=== PATIENT | female | born 1975 | race Two or more races ===

== ENCOUNTER 2021-06-13 20:24 | Emergency (ER) | payer SELFPAY ==
[~2021-06-13] VITALS: Ht 160 cm; Wt 61.5 kg
--- NOTE | 2021-06-13 20:56 | NUR ---
PT PRESENTS TO ER FOR: 22 DAYS AGO GOT PAP SMEAR FOR BLEEDING AND CRAMPING AND WAS TOLD TO COME TO ER IF THE BLEEDING GETS WORSE, PT EXPERIENCING HEAVY BLEEDING, LOWER ABDOMINAL PAIN, PT HAS 3-4 FULLY SATURATED PADS AN HOUR, PT STATES WHEN SHE URINATES SHE PASSES A LOT OF CLOTS, PTS DAUGHTER AT BEDSIDE
[2021-06-13] MEDS ORDERED: SODIUM CHLORIDE FLUSH 10ML SYR IVF ONE (21:00)
[2021-06-13 21:03] LABS: BASOPHILS % (AUTO) 1 % (0-1); EOSINOPHILS % (AUTO) 3 % (1-7); LYMPHOCYTES % (AUTO) 23 % (22-44); MEAN CORPUSCULAR HEMOGLOBIN 30.7 pg (27.0-34.8); MEAN CORPUSCULAR HGB CONC 34.5 g/dL (32.4-35.8); MEAN PLATELET VOLUME 8.9 fL (7.4-10.4); MONOCYTES % (AUTO) 8 % (2-9); NEUTROPHILS % (AUTO) 66 % (42-75); PLATELET COUNT 329 x10^3/uL (130-400); RED BLOOD COUNT 4.59 x10^6/uL (3.82-5.3); RED CELL DISTRIBUTION WIDTH 13.5 % (9.6-15.2)
[2021-06-13 21:09] LABS: ALBUMIN 3.9 g/dL (3.4-5.0); ANION GAP 6 mmol/L (5-15); CALCIUM 8.8 mg/dL (8.5-10.1); CHLORIDE 104 mmol/L (98-107)
[2021-06-13 21:14] LABS: ALANINE AMINOTRANSFERASE 25 U/L (12-78); ALKALINE PHOSPHATASE 102 U/L (45-117); BILIRUBIN,TOTAL 0.5 mg/dL (0.2-1.0); CREATININE 0.79 mg/dL (0.55-1.02); TOTAL PROTEIN 8.9 g/dL (6.4-8.2)
--- NOTE | 2021-06-13 22:03 | NUR ---
TASK RN: MILANA BERGERON PERFORMED SAMPLE WALKED TO LAB
[2021-06-13 22:57] VITALS: BP 118/80
== END 2021-06-13 22:58 | disposition home or self-care (01) ==
LOC: ED 21:55
DX: N92.1 Excessive and frequent menstruation with irregular cycle (principal); R94.31 Abnormal electrocardiogram [ECG] [EKG]
CPT/HCPCS: 36415; 76830; 80053; 84703; 85025; 86850; 86900; 93005; 99285